=== PATIENT | female | born 1940 | race Two or more races ===

== ENCOUNTER 2023-10-26 11:49 | Inpatient (IN) | payer OTHER, MEDICARE ==
[~2023-10-26] VITALS: Ht 167.6 cm; Wt 64.5 kg
[2023-10-26 12:58] LABS: BASOPHILS % 0.7 % (0.0-2.0); EOSINOPHILS % 4.3 % (0.0-5.0); HEMATOCRIT. 32.8 % (36.0-48.0); HEMOGLOBIN. 10.5 g/dL (12.0-16.0); LYMPHOCYTES % 17.9 % (20.0-50.0); MEAN CORPUSCULAR HEMOGLOBIN 29.7 pg (28.0-32.0); MEAN CORPUSCULAR HGB CONC 32.1 g/dL (31.0-37.0); MEAN CORPUSCULAR VOLUME 92.6 fL (81.0-99.0); MEAN PLATELET VOLUME 7.8 fl (7.4-10.4); MONOCYTES % 11.4 % (2.0-8.0); NEUTROPHILS % 65.7 % (40.0-76.0); PLATELET 148 x1000/uL (130-400); RED BLOOD CELL COUNT 3.55 mill/uL (4.2-5.4); RED CELL DISTRIBUTION WIDTH 15.5 % (11.6-14.6); WHITE BLOOD COUNT 5.5 x1000/uL (4.5-11.0)
[2023-10-26 13:03] LABS: CHLORIDE 117 mEq/L (98-107); POTASSIUM 5.3 mEq/L (3.5-5.1); SODIUM 141 mEq/L (136-145)
[2023-10-26 13:04] LABS: CALCIUM 9.5 mg/dL (8.7-10.4); CARBON DIOXIDE 16 mEq/L (21-32)
[2023-10-26 13:09] LABS: CREATININE 2.1 mg/dL (0.6-1.0); GLUCOSE 105 mg/dL (70-105); UREA NITROGEN BLOOD 54 mg/dL (9-23)
[2023-10-26 13:11] LABS: ALANINE AMINOTRANSFERASE 13 IU/L (10-49); ALBUMIN 3.9 g/dL (3.2-4.8); ASPARTATE AMINOTRANSFERASE 17 IU/L (<34); BILIRUBIN DIRECT 0.1 mg/dL (<=3.0); BILIRUBIN TOTAL 0.4 mg/dL (0.1-1.0); PROTEIN TOTAL 6.4 g/dL (6.0-8.3); TROPONIN I HIGH SENSITIVITY 11 ng/L (3.0-34)
[2023-10-26 13:12] LABS: INR 0.9; PROTHROMBIN TIME 10.5 sec (9.6-11.0)
[2023-10-26] MEDS: TETANUS, DIPHTHERIA, PERTUSSIS VAC/PF 0.5ML (>10YR OLD) IM ONE (14:32)
[2023-10-26 17:41] LABS: BG BASE EXCESS -9.9 mmol/L (-2.0-2.0); BG CARBOXYHEMOGLOBIN 0.1 % (0.5-1.5); BG DEOXYHEMOGLOBIN 1.9 % (0.0-5.0); BG HCO3 ACT 14.2 mmol/L (22.0-26.0); BG METHEMOGLOBIN 0.3 % (0.0-1.5); BG OXYGEN SATURATION 98.1 % (92.0-98.5); BG OXYHEMOGLOBIN 97.7 % (94.0-97.0); BG PCO2 26.1 mmHg (35.0-45.0); BG PH 7.352 (7.350-7.450); BG PO2 107.5 mmHg (75.0-100.0); BG TOTAL HEMOGLOBIN 11.3 g/dL (12.0-18.0)
[2023-10-26] MEDS ORDERED: ATOR40TA70 PO (17:44)
[2023-10-26] MEDS ORDERED: ASPI-1406 PO (17:44)
[2023-10-26] MEDS ORDERED: DICL100G58 TP (17:44)
[2023-10-26] MEDS ORDERED: TRAM50TA3 PO (17:44)
[2023-10-26] MEDS ORDERED: CHOL2000 PO (17:44)
[2023-10-26] MEDS ORDERED: AMLO5TAB88 PO (17:44)
[2023-10-26] MEDS ORDERED: PANT40TA51 PO (17:44)
[2023-10-26] MEDS ORDERED: HYDR25TA78 PO (17:44)
[2023-10-26] MEDS ORDERED: ENOXAPARIN 40MG/0.4ML SYR SUBCUT SCH (17:45)
[2023-10-26] MEDS ORDERED: NA PHOS,M-B/NA PHOS,DI-BA ENEMA 118ML PR PRN (17:45)
[2023-10-26] MEDS ORDERED: MAGNESIUM/ALUMINUM HYDROXIDE/SIMETHICONE 30ML UDC PO PRN (17:45)
[2023-10-26] MEDS ORDERED: ACETAMINOPHEN 325MG TABLET PO PRN (17:45)
[2023-10-26] MEDS ORDERED: DOCUSATE SODIUM 100MG CAPSULE PO PRN (17:45)
[2023-10-26] MEDS ORDERED: TRAMADOL 50MG TABLET PO PRN (17:45)
[2023-10-26] MEDS ORDERED: NALOXONE HCL 0.4MG/ML VIAL IV PRN (18:15)
[2023-10-26] MEDS: SODIUM BICARBONATE IV SCH (18:38)
[2023-10-26] MEDS: DEXT IV SCH (18:38)
[2023-10-26] MEDS: NACL IV SCH (18:38)
[2023-10-26] MEDS: PANTOPRAZOLE 40MG DR TABLET PO SCH (18:42)
[2023-10-26] MEDS: ASPIRIN 81MG EC TABLET PO SCH (18:42)
[2023-10-26] MEDS: ENOXAPARIN 30MG/0.3ML SYR SUBCUT SCH (18:43)
[2023-10-26] MEDS: ATORVASTATIN CALCIUM 40MG TABLET PO SCH (21:00)
[2023-10-26] MEDS ORDERED: DIPHENOXYLATE/ATROPINE 2.5/0.025MG TABLET PO PRN (21:45)
[2023-10-26] MEDS: BUDESONIDE 0.5MG/2ML NEB HHN SCH (21:45)
[2023-10-26] MEDS: IPRATROPIUM/ALBUTEROL 0.5-3(2.5)MG/3ML NEB HHN SCH (21:45)
[2023-10-26] MEDS: HYDRALAZINE HCL 25MG TABLET PO SCH (22:00)
[2023-10-26 22:08] VITALS: PULSE 97; RESP 20; O2SAT 96
[2023-10-26] MEDS: SODIUM BICARBONATE 100 MEQ in DEXTROSE 5% WATER 900 ML IV ONE (23:00)
[2023-10-27] VITALS (12 sets, daily range): BP systolic 95–132; BP diastolic 48–78; PULSE 65–96; RESP 16–20; TEMP 97.5–99.9; O2SAT 99
[2023-10-27 03:15] LABS: BASOPHILS % 0.8 % (0.0-2.0); EOSINOPHILS % 4.4 % (0.0-5.0); HEMATOCRIT. 32.6 % (36.0-48.0); HEMOGLOBIN. 10.4 g/dL (12.0-16.0); LYMPHOCYTES % 22.2 % (20.0-50.0); MEAN CORPUSCULAR HGB CONC 31.9 g/dL (31.0-37.0); MONOCYTES % 11.5 % (2.0-8.0); NEUTROPHILS % 61.1 % (40.0-76.0); PLATELET 152 x1000/uL (130-400); RED BLOOD CELL COUNT 3.46 mill/uL (4.2-5.4); RED CELL DISTRIBUTION WIDTH 15.5 % (11.6-14.6); WHITE BLOOD COUNT 4.4 x1000/uL (4.5-11.0)
[2023-10-27 03:22] LABS: CARBON DIOXIDE 19 mEq/L (21-32); CHLORIDE 116 mEq/L (98-107); POTASSIUM 4.4 mEq/L (3.5-5.1); SODIUM 142 mEq/L (136-145)
[2023-10-27 03:23] LABS: CALCIUM 9.3 mg/dL (8.7-10.4)
[2023-10-27 03:27] LABS: IRON 97 ug/dL (50-170)
[2023-10-27 03:28] LABS: CREATININE 1.6 mg/dL (0.6-1.0); GLUCOSE 95 mg/dL (70-105); TROPONIN I HIGH SENSITIVITY 10 ng/L (3.0-34); UREA NITROGEN BLOOD 44 mg/dL (9-23)
[2023-10-27 03:30] LABS: ALANINE AMINOTRANSFERASE 12 IU/L (10-49); ALBUMIN 3.7 g/dL (3.2-4.8); ASPARTATE AMINOTRANSFERASE 19 IU/L (<34); BILIRUBIN DIRECT 0.2 mg/dL (<=3.0); BILIRUBIN TOTAL 0.5 mg/dL (0.1-1.0); PHOSPHORUS 4.1 mg/dL (2.5-4.9); PROTEIN TOTAL 5.8 g/dL (6.0-8.3); TOTAL IRON BINDING CAPACITY 262 ug/dl (250-425)
[2023-10-27 03:34] LABS: THYROID STIMULATING HORMONE 0.58 uIU/mL (0.55-4.78)
[2023-10-27] MEDS: PANTOPRAZOLE 40MG DR TABLET PO SCH (05:45)
[2023-10-27 06:51] LABS: TROPONIN I HIGH SENSITIVITY 9 ng/L (3.0-34)
[2023-10-27] MEDS ORDERED: AMLODIPINE 5MG TABLET PO SCH (09:00)
[2023-10-27] MEDS: ONDANSETRON HCL 4MG/2ML INJ IV PRN (10:07)
[2023-10-27] MEDS ORDERED: SODIUM BICARBONATE 50 MEQ in DEXTROSE 5% WATER 1,000 ML IV SCH (13:00)
[2023-10-27] MEDS ORDERED: SODIUM BICARBONATE 50 MEQ in DEXTROSE 5% WATER 950 ML IV SCH (13:30)
[2023-10-27] MEDS: CHOLECALCIFEROL (D3) 1000 UNIT TABLET PO SCH (14:13)
[2023-10-27] MEDS: DIPHENOXYLATE/ATROPINE 2.5/0.025MG TABLET PO SCH (16:42)
[2023-10-27] MEDS: SODIUM BICARBONATE 50 MEQ in DEXTROSE 5% WATER 950 ML IV SCH (18:58)
[2023-10-27] MEDS: SODIUM CHLORIDE 0.9% 500 ML IV ONE (18:58)
[2023-10-28] VITALS (9 sets, daily range): BP systolic 106–158; BP diastolic 51–78; PULSE 78–87; RESP 18; TEMP 96.6–99.8; O2SAT 97–98
[2023-10-28 07:27] LABS: CHLORIDE 109 mEq/L (98-107); POTASSIUM 4.2 mEq/L (3.5-5.1); SODIUM 136 mEq/L (136-145)
[2023-10-28 07:28] LABS: CALCIUM 8.9 mg/dL (8.7-10.4); CARBON DIOXIDE 20 mEq/L (21-32)
[2023-10-28 07:32] LABS: IRON 53 ug/dL (50-170)
[2023-10-28 07:33] LABS: CREATININE 1.3 mg/dL (0.6-1.0); GLUCOSE 139 mg/dL (70-105); TROPONIN I HIGH SENSITIVITY 8 ng/L (3.0-34); UREA NITROGEN BLOOD 38 mg/dL (9-23)
[2023-10-28 07:35] LABS: BASOPHILS % 0.8 % (0.0-2.0); EOSINOPHILS % 3.7 % (0.0-5.0); HEMATOCRIT. 28.6 % (36.0-48.0); HEMOGLOBIN. 9.3 g/dL (12.0-16.0); LYMPHOCYTES % 23.1 % (20.0-50.0); MEAN CORPUSCULAR HEMOGLOBIN 30.2 pg (28.0-32.0); MEAN CORPUSCULAR HGB CONC 32.6 g/dL (31.0-37.0); MEAN CORPUSCULAR VOLUME 92.7 fL (81.0-99.0); MEAN PLATELET VOLUME 7.8 fl (7.4-10.4); MONOCYTES % 11.6 % (2.0-8.0); NEUTROPHILS % 60.8 % (40.0-76.0); PHOSPHORUS 3.9 mg/dL (2.5-4.9); PLATELET 141 x1000/uL (130-400); RED BLOOD CELL COUNT 3.08 mill/uL (4.2-5.4); RED CELL DISTRIBUTION WIDTH 15.5 % (11.6-14.6); TOTAL IRON BINDING CAPACITY 259 ug/dl (250-425); WHITE BLOOD COUNT 4.9 x1000/uL (4.5-11.0)
[2023-10-28 07:46] LABS: VITAMIN B12 SERUM 503 pg/mL (211-911)
[2023-10-28 07:57] LABS: FOLIC ACID (FOLATE) SERUM 13.76 ng/mL (>5.38)
[2023-10-28] MEDS: MAGNESIUM 2 G PREMIX 50 ML IV NR (16:18)
[2023-10-28] MEDS ORDERED: DOCU-150 PO (17:07)
== END 2023-10-28 19:40 | disposition home health service (06) | DRG 641 ==
LOC: ER 11:49 → EDBEDREQ 14:03 → 8WST 15:54 → EDBEDREQ 15:58 → EDBEDREQTM 15:58
PROVIDERS: ADMIT Internal Medicine Pulmonary Disease; ATTEND Internal Medicine Pulmonary Disease
DX: E86.0 Dehydration (principal); N17.9 Acute kidney failure, unspecified; I13.0 Hypertensive heart and chronic kidney disease with heart failure and stage 1 through stage 4 chronic kidney disease, or unspecified chronic kidney disease; E87.20 Acidosis, unspecified; E87.5 Hyperkalemia; E78.5 Hyperlipidemia, unspecified; I50.9 Heart failure, unspecified; N18.9 Chronic kidney disease, unspecified; K21.9 Gastro-esophageal reflux disease without esophagitis; J44.9 Chronic obstructive pulmonary disease, unspecified; N28.1 Cyst of kidney, acquired; M50.33 Other cervical disc degeneration, cervicothoracic region; J32.0 Chronic maxillary sinusitis; M81.0 Age-related osteoporosis without current pathological fracture; Z82.5 Family history of asthma and other chronic lower respiratory diseases; Z84.1 Family history of disorders of kidney and ureter; Z90.49 Acquired absence of other specified parts of digestive tract; Z90.710 Acquired absence of both cervix and uterus; W18.30XA Fall on same level, unspecified, initial encounter; Y93.89 Activity, other specified; Y92.89 Other specified places as the place of occurrence of the external cause; Y99.8 Other external cause status; Z87.891 Personal history of nicotine dependence; D64.9 Anemia, unspecified; I95.1 Orthostatic hypotension
CPT/HCPCS: 36415; 36600; 71045; 73060; 73090; 74176; 80048; 80076; 82375; 82607; 82746; 82805; 83540; 83550; 83605; 83735; 83880; 84100; 84443; 84484; 85025; 90715; 93005; 94640; 97166; 99291; C1893; J1650; J2405; J3475; J3490; J7070; J7626